=== PATIENT | male | born 1990 | race Two or more races ===

== ENCOUNTER → 2020-05-20 | Emergency (ER) | payer OTHER ==
[~2020-05-20] VITALS: Ht 177.8 cm; Wt 101.2 kg
[~2020-05-20] MED LIST: ALBUTEROL SULF8.5 G1 INH; Albuterol ud Inhalation HHN ONE
[2020-05-20 21:10] VITALS: BP 137/92
--- NOTE | 2020-05-20 21:51 | Emergency Room Report ---
History of Present Illness General Chief Complaint: Chest Pain Source: Patient (Keenan Rodríguez MD) Present Illness HPI Patient is a 30-year-old male presents for increased palpitations and chest discomfort. Onset of symptoms immediately after intercourse. Reports having rapid heartbeat. Had noticed previous episodes of similar symptoms in the past. Had previous ER visit to [facility] for similar symptoms and had essentially negative work-up. He had been advised to follow-up with cardiology however he was unable to make an appointment. Denies any leg pain or swelling. Reports having increased left-sided pain with associated arm discomfort. Denies any prior cardiac history. Reports having palpitations with maximal heart rate which he would take EKGs from his watch (Keenan Rodríguez MD) Allergies: Coded Allergies: No Known Allergies (Unverified , 05/20/20) COVID-19 Screening Contact w/high risk pt: No Experienced COVID-19 symptoms?: No COVID-19 Testing performed PROCUREMENT COORDINATOR: No (Keenan Rodríguez MD) Patient History Past Medical History: see triage record Reviewed Nursing Documentation: PMH: Agreed; PSxH: Agreed (Keenan Rodríguez MD) Nursing Documentation-PMH Hx Hypertension: Yes (Keenan Rodríguez MD) Review of Systems All Other Systems: negative except mentioned in HPI (Keenan Rodríguez MD) Physical Exam Vital Signs Date Time Temp Pulse Resp B/P (MAP) Pulse Ox O2 Delivery O2 Flow Rate FiO2 05/20/20 21:10 97.9 96 18 137/92 (107) 99 Room Air Sp02 EP Interpretation: reviewed, normal General Appearance: normal inspection, well appearing, no apparent distress, alert, GCS 15 Head: atraumatic ENT: normal ENT inspection, hearing grossly normal, normal voice Neck: normal inspection, full range of motion, supple, no bony tend Respiratory: normal inspection, lungs clear, normal breath sounds, no respiratory distress, no retraction, no wheezing Cardiovascular #1: regular rate, rhythm, no edema Gastrointestinal: normal inspection, normal bowel sounds, non tender, soft, no guarding, no hernia Genitourinary: no CVA tenderness Musculoskeletal: normal inspection, back normal, normal range of motion Neurologic: alert, motor strength/tone normal, wire roller III-XII nml as tested, oriented x3, responsive, speech normal, normal inspection Psychiatric: normal inspection, judgement/insight normal, mood/affect normal (Keenan Rodríguez MD) Medical Decision Making Diagnostic Impression: Primary Impression: Chest pain Qualified Codes: R07.9 - Chest pain, unspecified ER Course patient presented for chest pain. Differential diagnosis include was not limited to pneumonia, coronavirus infection, bronchitis among others. Because of complexity of patient's case laboratory tests and imaging studies were ordered. (Keenan Rodríguez MD) ER Course Hospital Course 30-year-old M presents ED complaining of chest pain Patient initially seen and evaluated by Dr. Rodríguez. Please see his note for full history and physical Clinical course labs reviewed- all electrolytes normal, troponins negative, no leukocytosis, hemoglobin/hematocrit stable, ddimer wnl EKG - NSR, no acute ischemic changes interpreted by me COVID swab negative. Patient noted to have slight wheeze. Given breathing treatment. Discussed findings with patient. Has had multiple work-ups recently which were unremarkable. No cardiac risk factors. Safe for discharge with close outpatient follow-up. States he has a PMD I. I feel this is a highly complex case requiring extensive working including EKG/Rhythm strip, Xray/CT/US, Blood/urine lab work, repeat exams while in ED, and administration of strong opiates/narcotics for pain control, admission to hospital or close patient follow up. Diagnosis - chest pain Stable and discharged to home with Rx Albuterol. Instructed to followup with PMD. Return to ED if symptoms recur or worsen Laboratory Tests Test 05/20/20 22:05 White Blood Count 8.0 K/UL (4.8-10.8) Red Blood Count 5.06 M/UL (4.70-6.10) Hemoglobin 15.2 G/DL (14.2-18.0) Hematocrit 45.3 % (42.0-52.0) Mean Corpuscular Volume 89 FL (80-99) Mean Corpuscular Hemoglobin 29.9 PG (27.0-31.0) Mean Corpuscular Hemoglobin Concent 33.5 G/DL (32.0-36.0) Red Cell Distribution Width 12.2 % (11.6-14.8) Platelet Count 362 K/UL (150-450) Mean Platelet Volume 7.5 FL (6.5-10.1) Neutrophils (%) (Auto) 50.7 % (45.0-75.0) Lymphocytes (%) (Auto) 40.5 % (20.0-45.0) Monocytes (%) (Auto) 6.9 % (1.0-10.0) Eosinophils (%) (Auto) 1.2 % (0.0-3.0) Basophils (%) (Auto) 0.7 % (0.0-2.0) D-Dimer 0.19 mg/L FEU (0.00-0.49) Sodium Level 138 MMOL/L (136-145) Potassium Level 3.8 MMOL/L (3.5-5.1) Chloride Level 103 MMOL/L (98-107) Carbon Dioxide Level 30 MMOL/L (21-32) Anion Gap 5 mmol/L (5-15) Blood Urea Nitrogen 13 mg/dL (7-18) Creatinine 1.1 MG/DL (0.55-1.30) Estimat Glomerular Filtration Rate > 60 mL/min (>60) Glucose Level 82 MG/DL (74-106) Calcium Level 9.1 MG/DL (8.5-10.1) Total Bilirubin 0.5 MG/DL (0.2-1.0) Aspartate Amino Transf (AST/SGOT) 27 U/L (15-37) Alanine Aminotransferase (ALT/SGPT) 63 U/L (12-78) Alkaline Phosphatase 52 U/L (46-116) Troponin I 0.000 ng/mL (0.000-0.056) Total Protein 8.1 G/DL (6.4-8.2) Albumin 4.1 G/DL (3.4-5.0) Globulin 4.0 g/dL Albumin/Globulin Ratio 1.0 (1.0-2.7) Lipase 190 U/L (73-393) (Duc Ayon MD) EKG Diagnostic Results Rate: normal Rhythm: NSR ST Segments: no acute changes ASA given to the pt in ED: No (Duc Ayon MD) Rhythm Strip Diag. Results EP Interpretation: yes Rhythm: NSR, no PVC's, no ectopy (Duc Ayon MD) Last Vital Signs Date Time Temp Pulse Resp B/P (MAP) Pulse Ox O2 Delivery O2 Flow Rate FiO2 05/20/20 21:10 97.9 96 18 137/92 (107) 99 Room Air (Keenan Rodríguez MD) Status: improved (Duc Ayon MD) Disposition: HOME, SELF-CARE Condition: Stable Scripts Albuterol Sulfate* (Albuterol Sulfate Hfa*) 8.5 Gm Hfa.aer.ad 2 PUFF INH Q6H, #1 INH Prov: Keenan Rodríguez MD 05/20/20 Referrals: NON PHYSICIAN (PCP) Keenan Rodríguez MD May 20, 2020 21:51 Duc Ayon MD May 21, 2020 03:28
--- NOTE | 2020-05-20 21:59 | NUR ---
ED Nurse Note: Walk-in patient with complaints of recurrent chest tightness. IV started at right AC, per patient request. Patient IV patent with blood return, 20G. Patient reports refusing imaging yesterday at [facility] and would like to move forward with imaging today. Patient reports history of hypertension and hyperlipidemia.
[2020-05-20 22:42] LABS: BASOPHILS % (AUTO) 0.7 % (0.0-2.0); EOSINOPHILS % (AUTO) 1.2 % (0.0-3.0); HEMATOCRIT 45.3 % (42.0-52.0); HEMOGLOBIN 15.2 G/DL (14.2-18.0); LYMPHOCYTES % (AUTO) 40.5 % (20.0-45.0); MEAN CORPUSCULAR VOLUME 89 FL (80-99); MONOCYTES % (AUTO) 6.9 % (1.0-10.0); NEUTROPHILS % (AUTO) 50.7 % (45.0-75.0); PLATELET COUNT 362 K/UL (150-450); RED BLOOD COUNT 5.06 M/UL (4.70-6.10); RED CELL DISTRIBUTION WIDTH 12.2 % (11.6-14.8)
[2020-05-20 22:55] LABS: ANION GAP 5 mmol/L (5-15); BLOOD UREA NITROGEN 13 mg/dL (7-18); CALCIUM 9.1 MG/DL (8.5-10.1); CARBON DIOXIDE 30 MMOL/L (21-32); CHLORIDE 103 MMOL/L (98-107); CREATININE 1.1 MG/DL (0.55-1.30); POTASSIUM 3.8 MMOL/L (3.5-5.1); SODIUM 138 MMOL/L (136-145)
[2020-05-20 22:59] LABS: ALANINE AMINOTRANSFERASE 63 U/L (12-78); ALBUMIN 4.1 G/DL (3.4-5.0); ALKALINE PHOSPHATASE 52 U/L (46-116); ASPARTATE AMINO TRANSFERASE 27 U/L (15-37); BILIRUBIN,TOTAL 0.5 MG/DL (0.2-1.0)
--- NOTE | 2020-05-21 00:08 | NUR ---
ED Nurse Note: rt at bedside
--- NOTE | 2020-05-23 17:07 | Cardiology Report ---
APPROVED REPORT EKG Measurement Heart [id number] <Conclusion> Normal sinus rhythm Normal ECG
== END | disposition home or self-care (01) ==
LOC: EMR 21:43
DX: R07.9 Chest pain, unspecified (principal); I10 Essential (primary) hypertension
CPT/HCPCS: 36415; 80053; 83690; 84484; 85025; 85379; 93005; U0002; Z7502; 94640; 99284

== ENCOUNTER 2020-06-06 09:08 | Emergency (ER) | payer OTHER ==
[~2020-06-06] VITALS: Ht 177.8 cm; Wt 100.2 kg
[~2020-06-06 09:08] MED LIST changes: -Albuterol ud Inhalation HHN ONE
--- NOTE | 2020-06-06 09:28 | Emergency Room Report ---
History of Present Illness General Chief Complaint: Upper Respiratory Illness Source: Patient Present Illness HPI Disclaimer: Please note that this report is being documented using DRAGON technology. This can lead to erroneous entry secondary to incorrect interpretation by the dictating instrument. HPI: 30-year-old male presents for evaluation of sore throat and chest pain. Symptoms began last night. He reports sore throat and difficulty swallowing for the past 12 hours. Denies fever, chills, nasal congestion, cough, difficulty br eathing, abdominal pain, nausea, vomiting. He felt that something was stuck in his throat and induced vomiting to help "to dislodge it." Also reported some aching over the left side of his chest. Does not radiate. No exacerbating or relieving factors. Patient recently hospitalized had negative exercise stress test and multiple ER visits for chest pain at multiple facilities all of which are returned unremarkable. He is scheduled for nuclear stress test next month. He was also prescribed an albuterol inhaler but told not to use it by his new PMD as it causes significant tachycardia. 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 EOMI. uvula midline. Tonsils are 2+ nonobstructing. No exudate. Mild erythema. No submandibular lymphadenopathy. Cardiovascular: RRR. S1 and S2 normal. No murmur appreciated Resp: Normal work of breathing. No cough, wheezing or crackles appreciated Abdomen: Abdomen is soft, nondistended. Nontender Skin: Intact. No abrasions, laceration or rash over the exposed skin MSK: Normal tone and bulk. Moving all extremities. No obvious deformity. Neuro: Awake and alert. Mentating appropriately. Medical Decision Making Diagnostic Impression: Primary Impression: Acute nonspecific chest pain with low risk of coronary artery disease ER Course Is a 30-year-old male presenting for evaluation of sore throat and chest discomfort for the past 12 hours. Differential includes not limited to laryngitis, pharyngitis, URI, pneumonia, bronchitis, esophageal spasm, GERD, ACS, arrhythmia among others. Patient recently had negative exercise stress test and scheduled for nuclear stress test with his keeler polygraph operator next month. EKG is nonischemic. No infiltrate or other acute findings on chest x-ray. Patient is tolerating liquids at bedside. Possible mild pharyngitis though does not meet [facility] criteria for antibiotics at this time is otherwise well- appearing. Labs including troponin are within normal limits. Patient feels reassured by this. He is stable for outpatient follow-up. Instructed to follow-up with PMD and keeler polygraph operator as scheduled. Discussed reasons to return to the emergency department; he understands and agrees with treatment plan. Laboratory Tests Test 06/06/20 09:20 White Blood Count 7.7 K/UL (4.8-10.8) Red Blood Count 5.25 M/UL (4.70-6.10) Hemoglobin 15.9 G/DL (14.2-18.0) Hematocrit 44.0 % (42.0-52.0) Mean Corpuscular Volume 84 FL (80-99) Mean Corpuscular Hemoglobin 30.2 PG (27.0-31.0) Mean Corpuscular Hemoglobin Concent 36.0 G/DL (32.0-36.0) Red Cell Distribution Width 11.4 % (11.6-14.8) L Platelet Count 365 K/UL (150-450) Mean Platelet Volume 6.9 FL (6.5-10.1) Neutrophils (%) (Auto) % (45.0-75.0) Lymphocytes (%) (Auto) % (20.0-45.0) Monocytes (%) (Auto) % (1.0-10.0) Eosinophils (%) (Auto) % (0.0-3.0) Basophils (%) (Auto) % (0.0-2.0) Differential Total Cells Counted 100 Neutrophils % (Manual) 28 % (45-75) L Lymphocytes % (Manual) 64 % (20-45) H Monocytes % (Manual) 7 % (1-10) Eosinophils % (Manual) 1 % (0-3) Basophils % (Manual) 0 % (0-2) Band Neutrophils 0 % (0-8) Platelet Estimate Adequate Platelet Morphology Normal Red Blood Cell Morphology Normal Sodium Level 137 MMOL/L (136-145) Potassium Level 4.3 MMOL/L (3.5-5.1) Chloride Level 102 MMOL/L (98-107) Carbon Dioxide Level 29 MMOL/L (21-32) Anion Gap 6 mmol/L (5-15) Blood Urea Nitrogen 8 mg/dL (7-18) Creatinine 1.0 MG/DL (0.55-1.30) Estimated Glomerular Filtration Rate > 60 mL/min (>60) Glucose Level 91 MG/DL (74-106) Calcium Level 9.2 MG/DL (8.5-10.1) Total Bilirubin 0.4 MG/DL (0.2-1.0) Aspartate Amino Transferase (AST) 38 U/L (15-37) H Alanine Aminotransferase (ALT) 57 U/L (12-78) Alkaline Phosphatase 55 U/L (46-116) Troponin I 0.000 ng/mL (0.000-0.056) Total Protein 8.4 G/DL (6.4-8.2) H Albumin 4.2 G/DL (3.4-5.0) Globulin 4.2 g/dL Albumin/Globulin Ratio 1.0 (1.0-2.7) EKG Diagnostic Results Troponin ordered: Yes When was troponin ordered?: Jun 06, 2020 EKG Time: 09:17 Rate: normal Rhythm: NSR ST Segments: no acute changes Other Impression Sinus rhythm, normal axis, normal intervals, no ST segment changes. Rhythm Strip Diag. Results Rhythm Strip Time: 09:17 EP Interpretation: yes Rate: 70s Rhythm: NSR, no PVC's, no ectopy Chest X-Ray Diagnostic Results Chest X-Ray Diagnostic Results : Chest X-Ray Ordered: Yes # of Views/Limited/Complete: 1 View Indication: Chest Pain Interpretation: no consolidation, no effusion, no pneumothorax, no acute cardiopulmonary disease Impression: No acute disease Electronically Signed by: Electronically signed by Dr. Wenceslao Garcia Last Vital Signs Date Time Temp Pulse Resp B/P (MAP) Pulse Ox O2 Delivery O2 Flow Rate FiO2 10/20/20 09:14 97.9 82 22 144/97 (113) 96 Room Air Disposition: HOME, SELF-CARE Condition: Stable Scripts Acetaminophen* (TYLENOL EXTRA STRENGTH*) 500 Mg Tablet 500 MG ORAL Q8H PRN for Prn Headache/Temp > 101, #30 TAB 0 Refills Prov: Wenceslao Garcia MD 06/06/20 Wenceslao Garcia MD Jun 06, 2020 09:28
[2020-06-06] MEDS ORDERED: Acetaminophen 500mg (ES) tab ORAL ONE (09:30)
[2020-06-06 09:39] VITALS: BP 144/97
[2020-06-06 09:42] LABS: HEMOGLOBIN 15.9 G/DL (14.2-18.0); MEAN CORPUSCULAR VOLUME 84 FL (80-99); PLATELET COUNT 365 K/UL (150-450); RED BLOOD COUNT 5.25 M/UL (4.70-6.10); RED CELL DISTRIBUTION WIDTH 11.4 % (11.6-14.8); WHITE BLOOD COUNT 7.7 K/UL (4.8-10.8)
[2020-06-06 10:03] LABS: ANION GAP 6 mmol/L (5-15); BLOOD UREA NITROGEN 8 mg/dL (7-18); CALCIUM 9.2 MG/DL (8.5-10.1); CARBON DIOXIDE 29 MMOL/L (21-32); CHLORIDE 102 MMOL/L (98-107); POTASSIUM 4.3 MMOL/L (3.5-5.1); SODIUM 137 MMOL/L (136-145)
[2020-06-06 10:08] LABS: ALANINE AMINOTRANSFERASE 57 U/L (12-78); ALBUMIN 4.2 G/DL (3.4-5.0); ALKALINE PHOSPHATASE 55 U/L (46-116); ASPARTATE AMINO TRANSFERASE 38 U/L (15-37); BILIRUBIN,TOTAL 0.4 MG/DL (0.2-1.0)
[2020-06-06] MEDS ORDERED: TYLENOL EXTRA500 MG ORAL (10:08)
[2020-06-06 10:13] VITALS: BP 132/88
--- NOTE | 2020-06-06 14:46 | Diagnostic Imaging Report ---
Indication: Reason For Exam: CP Technique: Single AP view of the chest. Comparison: None. Findings: The cardiomediastinal silhouette is within normal limits. There is no focal consolidation, pneumothorax or pleural effusion. Osseous structures demonstrate no acute abnormality. IMPRESSION: No radiographic evidence of acute cardiopulmonary process.
--- NOTE | 2020-06-07 15:34 | Cardiology Report ---
APPROVED REPORT EKG Measurement Heart [id number] <Conclusion> Normal sinus rhythm with sinus arrhythmia Normal ECG
== END 2020-06-06 10:13 | disposition home or self-care (01) ==
LOC: EMR 09:30
DX: R07.9 Chest pain, unspecified (principal); R07.0 Pain in throat; I10 Essential (primary) hypertension
CPT/HCPCS: 36415; 71045; 80053; 84484; 85007; 85025; 93005; Z7502; 99283

== ENCOUNTER 2020-06-10 02:37 | Inpatient (IN) | payer OTHER ==
[~2020-06-10] VITALS: Ht 177.8 cm; Wt 99.2 kg
[~2020-06-10 02:37] MED LIST changes: +TYLENOL EXTRA500 MG ORAL
--- NOTE | 2020-06-10 02:45 | NUR ---
ED Nurse Note: pt ambulated into ed from home CO CP x 1 hr after intercourse. Pt reports recent constipation x 2 days. pt reports taking amlodipine, lipitor, and ASA at home daily. pt aao x 4, ambulates with steady gait. changed into gown; attached to monitor. patient vitals stable. all safety measures met.
[2020-06-10 02:50] VITALS: BP 143/86
--- NOTE | 2020-06-10 02:50 | NUR ---
ED Nurse Note: iv access established. blood urine covid swab collected; sent down to lab.
--- NOTE | 2020-06-10 03:01 | Emergency Room Report ---
History of Present Illness General Chief Complaint: Chest Pain Source: Patient Present Illness HPI Patient is a 30-year-old male past medical history of obesity, hyperlipidemia and hypertension who presents to the ER complaining of chest pain. Patient states that he was involved in sexual intercourse approximately 1 hour prior to arrival when he had onset of left-sided chest pain, dizziness and shortness of breath. Patient states that he has not been taking his medications for the past 3 days because he had an upset stomach. He denies any current abdominal pain, nausea or vomiting. Patient states that he was admitted to [facility] last month for chest pain and had onset of chest pain during his stress test. He is scheduled for nuclear stress test in the next month. Patient denies any family history of early cardiovascular disease. Patient states that he traveled to [facility] approximately 1-1/2 months ago. Patient states that he quit smoking years ago and quit drinking as well. He denies any drug use. 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 COVID-19 Screening: Negative COVID-19 COVID-19 Testing Source: 05/2020 Patient History Reviewed Nursing Documentation: PMH: Agreed; PSxH: Agreed Nursing Documentation-PMH Past Medical History: No History, Except For Hx Cardiac Problems: Yes Hx Hypertension: Yes Hx Gastrointestinal Problems: Yes - high cholesterol, hiatal hernia Review of Systems All Other Systems: negative except mentioned in HPI Physical Exam Vital Signs Date Time Temp Pulse Resp B/P (MAP) Pulse Ox O2 Delivery O2 Flow Rate FiO2 06/10/20 02:39 98.4 82 22 143/86 (105) 96 Room Air Sp02 EP Interpretation: reviewed, normal General Appearance: no apparent distress, alert, GCS 15, non-toxic Head: normocephalic, atraumatic Eyes: bilateral eye normal inspection, bilateral eye PERRL ENT: hearing grossly normal, normal pharynx, no angioedema, normal voice Neck: full range of motion, supple/symm/no masses Respiratory: chest non-tender, lungs clear, normal breath sounds, speaking full sentences, other - Mildly tachypneic Cardiovascular #1: regular rate, rhythm Cardiovascular #2: 2+ carotid (R), 2+ carotid (L), 2+ radial (R), 2+ radial (L), 2+ femoral (R), 2+ femoral (L) Gastrointestinal: normal bowel sounds, non tender, soft, non-distended, no guarding, no rebound, overweight Rectal: deferred Musculoskeletal: normal range of motion, no calf tenderness, no lower extremity edema Neurologic: resin filterer III-XII nml as tested, oriented x3 Psychiatric: no suicidal/homicidal ideation Skin: no rash Lymphatic: no adenopathy Medical Decision Making Diagnostic Impression: Primary Impression: Acute nonspecific chest pain with low risk of coronary artery disease ER Course Patient resting comfortably in his bed. Patient reevaluated at 4:05 AM. Patient given IV fluids as well as aspirin. Patient states that he feels much improved. He states that he is completely asymptomatic now I reviewed his laboratory results specifically a negative D-dimer as well as a negative troponin. Patient is declining a chest x-ray. He states that he does not want any radiation. Myself and the radiology aide told him that there were radiologic findings that could help us for his diagnosis and he is still declining. Patient's COVID-19 swab is negative. Patient has concerning history with his medical history of obesity, hypertension and hyperlipidemia and positive reported stress test at [facility] and chest pain during sexual activity which I considered to be a positive stress test as well. Patient will be admitted for further treatment and evaluation and likely cardiology consultation. Laboratory Tests Test 06/10/20 02:50 White Blood Count 7.1 K/UL (4.8-10.8) Red Blood Count 5.17 M/UL (4.70-6.10) Hemoglobin 15.3 G/DL (14.2-18.0) Hematocrit 45.3 % (42.0-52.0) Mean Corpuscular Volume 88 FL (80-99) Mean Corpuscular Hemoglobin 29.7 PG (27.0-31.0) Mean Corpuscular Hemoglobin Concent 33.9 G/DL (32.0-36.0) Red Cell Distribution Width 12.0 % (11.6-14.8) Platelet Count 341 K/UL (150-450) Mean Platelet Volume 7.1 FL (6.5-10.1) Neutrophils (%) (Auto) 43.1 % (45.0-75.0) L Lymphocytes (%) (Auto) 50.1 % (20.0-45.0) H Monocytes (%) (Auto) 4.0 % (1.0-10.0) Eosinophils (%) (Auto) 2.0 % (0.0-3.0) Basophils (%) (Auto) 0.9 % (0.0-2.0) Prothrombin Time 10.7 SEC (9.30-11.50) Prothrombin Time INR 1.0 (0.9-1.1) Activated Partial Thromboplast Time 26 SEC (23-33) D-Dimer < 0.19 mg/L FEU Sodium Level 134 MMOL/L (136-145) L Potassium Level 3.9 MMOL/L (3.5-5.1) Chloride Level 98 MMOL/L (98-107) Carbon Dioxide Level 29 MMOL/L (21-32) Anion Gap 7 mmol/L (5-15) Blood Urea Nitrogen 8 mg/dL (7-18) Creatinine 1.1 MG/DL (0.55-1.30) Estimated Glomerular Filtration Rate > 60 mL/min (>60) Glucose Level 138 MG/DL (74-106) H Calcium Level 8.8 MG/DL (8.5-10.1) Total Bilirubin 0.4 MG/DL (0.2-1.0) Aspartate Amino Transferase (AST) 25 U/L (15-37) Alanine Aminotransferase (ALT) 50 U/L (12-78) Alkaline Phosphatase 56 U/L (46-116) Troponin I 0.000 ng/mL (0.000-0.056) Pro-B-Type Natriuretic Peptide 8 pg/mL (0-125) Total Protein 7.3 G/DL (6.4-8.2) Albumin 4.2 G/DL (3.4-5.0) Globulin 3.1 g/dL Albumin/Globulin Ratio 1.4 (1.0-2.7) Urine Opiates Screen Negative (NEGATIVE) Urine Barbiturates Screen Negative (NEGATIVE) Phencyclidine (PCP) Screen Negative (NEGATIVE) Urine Amphetamines Screen Negative (NEGATIVE) Urine Benzodiazepines Screen Negative (NEGATIVE) Urine Cocaine Screen Negative (NEGATIVE) Urine Marijuana (THC) Screen Negative (NEGATIVE) Microbiology Date/Time Source Procedure Growth Status 06/10/20 02:50 Nasopharynx SARS-CoV-2 RdRp Gene Assay - Final Complete EKG Diagnostic Results Troponin ordered: Yes When was troponin ordered?: Jun 10, 2020 EKG Time: 02:50 EP Interpretation: Annette Bains MD Rate: normal - 79 bpm Rhythm: NSR ST Segments: no acute changes ASA given to the pt in ED: No Rhythm Strip Diag. Results Rhythm Strip Time: 03:47 EP Interpretation: yes - Annette Bains MD Rate: 78 bpm Rhythm: NSR, no PVC's, no ectopy Last Vital Signs Date Time Temp Pulse Resp B/P (MAP) Pulse Ox O2 Delivery O2 Flow Rate FiO2 06/10/20 02:39 98.4 82 22 143/86 (105) 96 Room Air Disposition: PLACE IN OBSERVATION - Telemetry Condition: Critical Physician Consult: Discussed with Dr. Kaiser at 4:44 AM she is covering for Dr. Benitez Referrals: [facility],REFERR[facility] (PCP) Additional Instructions: Please note that this report is being documented using Auto I.D. technology. This can lead to erroneous entry secondary to incorrect interpretation by the dictating instrument. Annette Bains M.D. Jun 10, 2020 03:01
[2020-06-10] MEDS ORDERED: AMLODIPINE BES2.5 MG ORAL (03:25)
[2020-06-10] MEDS ORDERED: ASPIRIN81 MG ORAL (03:25)
[2020-06-10] MEDS ORDERED: LIPITOR40 MG ORAL (03:25)
[2020-06-10 03:31] LABS: BASOPHILS % (AUTO) 0.9 % (0.0-2.0); HEMATOCRIT 45.3 % (42.0-52.0); HEMOGLOBIN 15.3 G/DL (14.2-18.0); LYMPHOCYTES % (AUTO) 50.1 % (20.0-45.0); MEAN CORPUSCULAR VOLUME 88 FL (80-99); NEUTROPHILS % (AUTO) 43.1 % (45.0-75.0); PLATELET COUNT 341 K/UL (150-450); RED BLOOD COUNT 5.17 M/UL (4.70-6.10); WHITE BLOOD COUNT 7.1 K/UL (4.8-10.8)
[2020-06-10 03:40] LABS: ANION GAP 7 mmol/L (5-15); BLOOD UREA NITROGEN 8 mg/dL (7-18); CALCIUM 8.8 MG/DL (8.5-10.1); CARBON DIOXIDE 29 MMOL/L (21-32); CHLORIDE 98 MMOL/L (98-107); CREATININE 1.1 MG/DL (0.55-1.30); POTASSIUM 3.9 MMOL/L (3.5-5.1); SODIUM 134 MMOL/L (136-145)
[2020-06-10 03:45] LABS: PARTIAL THROMBOPLASTIN TIME 26 SEC (23-33)
[2020-06-10 03:50] LABS: ALANINE AMINOTRANSFERASE 50 U/L (12-78); ALBUMIN 4.2 G/DL (3.4-5.0); ALBUMIN/GLOBULIN RATIO 1.4 (1.0-2.7); ALKALINE PHOSPHATASE 56 U/L (46-116); ASPARTATE AMINO TRANSFERASE 25 U/L (15-37); BILIRUBIN,TOTAL 0.4 MG/DL (0.2-1.0)
[2020-06-10 04:30] VITALS: BP 132/84
--- NOTE | 2020-06-10 05:05 | NUR ---
TRANSFER TO FLOOR: Patient transferred to tele 220-2 as ordered, per sourav regalado. Report given to gladys dunaway. patient stable for transport. transferred to unit via gurney with 2 rn. belongings and admission packet sent with patient.
--- NOTE | 2020-06-10 05:15 | NUR ---
NURSE NOTES: Received report from ER nurse Lexii. patient being admitted to tele for observation. Patient c/o 5/10 chest pain mainly during exertion, intermittent and non radiating. Patient is ambulatory with steady gait alert and oriented x4. Call light in reach. Patient has cell phone, clothing and keys with him. Belongings list signed. Bed at lowest position locked with side rail up for support. Will contact MD for further orders.
--- NOTE | 2020-06-10 05:45 | NUR ---
NURSE NOTES: Dr. Kaiser covering for Dr. Benitez called for orders for patient but no call back at this time. Will attempt in 30 minutes.
--- NOTE | 2020-06-10 06:37 | NUR ---
NURSE NOTES: Called Dr. Benitez's exchange spoke with Sage for orders. Awaiting call back.
--- NOTE | 2020-06-10 06:50 | NUR ---
NURSE NOTES: Orders recieved from Dr. Onofre. Noted and carried out.
[2020-06-10] MEDS ORDERED: Atorvastatin 20mg tab ORAL ONE (07:00)
--- NOTE | 2020-06-10 07:50 | NUR ---
NURSE NOTES: Report given to Arnulfo BARNETT. Patient is stable alert and oriented x 4 and denies any chest pain at this time.
[2020-06-10 08:00] VITALS: BP 132/78
--- NOTE | 2020-06-10 08:00 | NUR ---
NURSE NOTES: Pt napping in bed, breathing easily on room air, denies SOB and denies pain at this time but c/o mild stomach upset, given some soda cracker and water. Vital signs stable with SR @ 66 on monitor. IV access LAC flushed with 10 ml NS and locked. Bed left in low position, side rails up x 2 and call light left near pt's hand.
[2020-06-10] MEDS: Aspirin Baby 81mg ORAL SCH (09:15)
[2020-06-10 09:17] LABS: CHOLESTEROL 180 MG/DL (< 200); HDL CHOLESTEROL 38 MG/DL (40-60); TRIGLYCERIDES 308 MG/DL (30-150)
--- NOTE | 2020-06-10 10:52 | NUR ---
CASE MANAGEMENT:REVIEW 30 YR OLD MALE WALKED IN TO ER CC: CHEST PAIN SI: ACS 98.4 82 22 143/86 96% ON RA TROPONIN(-) IS: 1L NS BOLUS ASA PO LIPITOR PO CHEST XRAY : TO TELEMETRY UNIT DCP: FROM HOME
[2020-06-10] MEDS ORDERED: Milk of Magnesia 30ml Ud ORAL PRN (11:00)
[2020-06-10] MEDS ORDERED: Mylanta II UD 30ml ORAL PRN (11:00)
[2020-06-10] MEDS ORDERED: Albuterol/Ipratropium 3ml neb HHN PRN (11:00)
[2020-06-10] MEDS ORDERED: Miralax 17gm pkt ORAL PRN (11:00)
--- NOTE | 2020-06-10 11:07 | History and Physical ---
History of Present Illness General Reason for Hospitalization: Chest Pain Present Illness HPI Mr. Schwartz is a 30M with PMH of fatty liver disease, HTN and HLD who presents for chest pain during intercourse last night. Patient reports over last 3 months he experiences exertional left sided chest pain that radiates to his left arm; 8/10 intensity, that alleviates with rest. He specifically notes every time he has intercourse with his , walks up stairs, or exercises he induces his chest pain. He has associated dyspnea and PND. He was previously seen at OSH a few months ago for similar presentation in which patient completed ECG that showed no abnormalities. 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 He notes randomly his heart will race during the day in the 120's. Denies previous cardiopulmonary hx. No family hx of heart disease. He does admit to snoring, waking gasping for air and excessive day time sleepiness. He has not been evaluated for JORGE A. He also has poor diet and eats late at night; he does get chest discomfort as well after certain meals. Denies any drug use or acohol use. No new medications. No recent illnesses, sick contacts, or travels. Rest of 10 point ROS negative. In the ED, patient hemodynamically stable. Trops negative. EKG nsr without acute ST changes. Admitted for chest pain PMH: HTN, HLD, NAFLD Sx: none Fx: no cardiac or pulmonary disease Soc: denies smoking,drinking or drug use Allergies: Coded Allergies: No Known Allergies (Unverified , 05/20/20) COVID-19 Screening Contact w/high risk pt: No Experienced COVID-19 symptoms?: No Medication History Scheduled Albuterol Sulfate* (Albuterol Sulfate Hfa*), 2 PUFF INH Q6H Amlodipine Besylate* (Amlodipine Besylate*), 2.5 MG ORAL DAILY, (Reported) Aspirin* (Aspirin*), 81 MG ORAL DAILY, (Reported) Atorvastatin Calcium* (Lipitor*), 40 MG ORAL DAILY, (Reported) Scheduled PRN Acetaminophen* (Tylenol Extra Strength*), 500 MG ORAL Q8H PRN for Prn Headache/Temp > 101 Patient History Healthcare decision maker Resuscitation status Advanced Directive on File Review of Systems Constitutional: Denies: no symptoms, see HPI, chills, sweats, fever, malaise, weakness, other Eye: Denies: no symptoms, see HPI, eye pain, blurred vision, tearing, double vision, nose pain, nose congestion, acuity changes, discharge, other ENT: Denies: no symptoms, see HPI, ear pain, ear discharge, nose pain, nose congestion, throat pain, throat swelling, mouth pain, hearing loss, nasal discharge, other Respiratory: Denies: no symptoms, see HPI, cough, orthopnea, shortness of breath, stridor, wheezing, ARCE, sputum, other Gastrointestinal: Denies: no symptoms, see HPI, abdominal pain, constipation, diarrhea, nausea, vomiting, melena, hematemesis, other Genitourinary: Denies: no symptoms, see HPI, discharge, dysuria, frequency, hematuria, pain, retention, incontinence, urgency, vag bleed/dc, other Musculoskeletal: Denies: no symptoms, see HPI, back pain, gout, joint pain, joint swelling, muscle pain, muscle stiffness, other Skin: Denies: no symptoms, see HPI, rash, change in color, change in hair/nails, dryness, lesions, other Psychiatric: Denies: no symptoms, see HPI, prior hx, anxiety, depressed feelings, emotional problems, SI, HI, hallucinations, other Neurological: Denies: no symptoms, see HPI, headache, numbness, paresthesia, seizure, tingling, tremors, focal weakness, syncope, dizziness, other Endocrine: Denies: no symptoms, see HPI, excessive sweating, flushing, intolerance to temperature, increased thirst, increased urine, unexplained weight loss, other Hematologic/Lymphatic: Denies: no symptoms, see HPI, anemia, blood clots, easy bleeding, easy bruising, swollen glands, diathesis, other Physical Exam General Appearance: no apparent distress, alert, alert oriented x3 HEENT: normocephalic, PERRL Neck: non-tender, normal inspection Respiratory/Chest: lungs clear, normal breath sounds, no respiratory distress Cardiovascular/Chest: normal rate, regular rhythm, regularly irregular Abdomen: normal bowel sounds, non tender, soft Extremities: normal range of motion, non-tender Skin Exam: normal pigmentation, warm/dry 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8-10.8) Red Blood Count 5.17 M/UL (4.70-6.10) Hemoglobin 15.3 G/DL (14.2-18.0) Hematocrit 45.3 % (42.0-52.0) Mean Corpuscular Volume 88 FL (80-99) Mean Corpuscular Hemoglobin 29.7 PG (27.0-31.0) Mean Corpuscular Hemoglobin Concent 33.9 G/DL (32.0-36.0) Red Cell Distribution Width 12.0 % (11.6-14.8) Platelet Count 341 K/UL (150-450) Mean Platelet Volume 7.1 FL (6.5-10.1) Neutrophils (%) (Auto) 43.1 % (45.0-75.0) L Lymphocytes (%) (Auto) 50.1 % (20.0-45.0) H Monocytes (%) (Auto) 4.0 % (1.0-10.0) Eosinophils (%) (Auto) 2.0 % (0.0-3.0) Basophils (%) (Auto) 0.9 % (0.0-2.0) Prothrombin Time 10.7 SEC (9.30-11.50) Prothromb Time International Ratio 1.0 (0.9-1.1) Activated Partial Thromboplast Time 26 SEC (23-33) D-Dimer < 0.19 mg/L FEU Sodium Level 134 MMOL/L (136-145) L Potassium Level 3.9 MMOL/L (3.5-5.1) Chloride Level 98 MMOL/L (98-107) Carbon Dioxide Level 29 MMOL/L (21-32) Anion Gap 7 mmol/L (5-15) Blood Urea Nitrogen 8 mg/dL (7-18) Creatinine 1.1 MG/DL (0.55-1.30) Estimat Glomerular Filtration Rate > 60 mL/min (>60) Glucose Level 138 MG/DL (74-106) H Calcium Level 8.8 MG/DL (8.5-10.1) Total Bilirubin 0.4 MG/DL (0.2-1.0) Aspartate Amino Transf (AST/SGOT) 25 U/L (15-37) Alanine Aminotransferase (ALT/SGPT) 50 U/L (12-78) Alkaline Phosphatase 56 U/L (46-116) Troponin I 0.000 ng/mL (0.000-0.056) 0.000 ng/mL (0.000-0.056) Pro-B-Type Natriuretic Peptide 8 pg/mL (0-125) Total Protein 7.3 G/DL (6.4-8.2) Albumin 4.2 G/DL (3.4-5.0) Globulin 3.1 g/dL Albumin/Globulin Ratio 1.4 (1.0-2.7) Urine Opiates Screen Negative (NEGATIVE) Urine Barbiturates Screen Negative (NEGATIVE) Phencyclidine (PCP) Screen Negative (NEGATIVE) Urine Amphetamines Screen Negative (NEGATIVE) Urine Benzodiazepines Screen Negative (NEGATIVE) Urine Cocaine Screen Negative (NEGATIVE) Urine Marijuana (THC) Screen Negative (NEGATIVE) Hemoglobin A1c 5.7 % (4.3-6.0) Triglycerides Level 308 MG/DL (30-150) H Cholesterol Level 180 MG/DL (< 200) LDL Cholesterol 89 mg/dL (<100) HDL Cholesterol 38 MG/DL (40-60) L Cholesterol/HDL Ratio 4.7 (3.3-4.4) H Thyroid Stimulating Hormone (TSH) 2.327 uiU/mL (0.358-3.740) Microbiology Date/Time Source Procedure Growth Status 06/10/20 02:50 Nasopharynx SARS-CoV-2 RdRp Gene Assay - Final Complete Height (Feet): 5 Height (Inches): 10.00 Weight (Pounds): 220 Medications Current Medications Medications (Trade) Dose Ordered Sig/Rosemary Route PRN Reason Start Time Stop Time Status Last Admin Dose Admin Acetaminophen (Tylenol) 650 mg Q4H PRN ORAL Mild Pain (Pain Scale 1-3) 06/10/20 11:00 07/10/20 10:59 UNV Acetaminophen (Tylenol) 650 mg Q4H PRN ORAL Temp >100.5 06/10/20 11:00 07/10/20 10:59 UNV Al Hydroxide/Mg Hydroxide (Mylanta II) 30 ml Q6H PRN ORAL dyspepsia 06/10/20 11:00 07/10/20 10:59 UNV Albuterol/ Ipratropium (Albuterol/ Ipratropium) 3 ml Q4HR PRN HHN Shortness of Breath 06/10/20 11:00 06/15/20 10:59 UNV Amlodipine Besylate (Norvasc) 2.5 mg DAILY ORAL 06/10/20 09:00 07/10/20 08:59 06/10/20 09:15 Aspirin (ASA) 81 mg DAILY ORAL 06/10/20 09:00 07/25/20 08:59 06/10/20 09:15 Atorvastatin Calcium (Lipitor) 20 mg DAILY ORAL 06/11/20 09:00 09/08/20 20:59 Dextrose (Dextrose 50%) 25 ml Q30M PRN IV Hypoglycemia 06/10/20 11:00 09/08/20 10:59 UNV Dextrose (Dextrose 50%) 50 ml Q30M PRN IV Hypoglycemia 06/10/20 11:00 09/08/20 10:59 UNV Enoxaparin Sodium (Lovenox) 40 mg Q24H SUBQ 06/10/20 12:00 09/08/20 11:59 UNV Magnesium Hydroxide (Mom) 30 ml HSPRN PRN ORAL Constipation 06/10/20 11:00 07/10/20 10:59 UNV Ondansetron HCl (Zofran) 4 mg Q6H PRN IVP Nausea & Vomiting 06/10/20 11:00 07/10/20 10:59 UNV Pantoprazole (Protonix) 40 mg DAILY ORAL 06/10/20 11:00 07/10/20 10:59 UNV Polyethylene Glycol (Miralax) 17 gm HSPRN PRN ORAL Constipation 06/10/20 11:00 07/10/20 10:59 UNV Assessment/Plan Diagnosis [place] I: Mr. Schwartz is a 30M with PMH of NAFLD, HTN, and HLD who presents for chest pain A: # Typical Chest pain w/ ACS r/o vs JORGE A vs PHTN # Essential HTN # HLD # GERD # NAFLD # ?JORGE A # Obesity Class 1 # hyperglycemia P: - hemodynamically stable - sat well on RA, keep O2 > 92% - trops negative - ekg: nsr without acute st changes or intraventricular conduction abnormalities - f/u ECHO for cardiac function, valvular, and wall motion and Pulmonary pressure eval - defer stress test to cardiology - continue home amlodipine - continue home statin - will start PPI for GERD - UTOX neg - discussed improtance of getting sleep study as an outpatinet as he likely has underlying JORGE A as well - f/u cardiology consult Dr. Vigil, recs appreciated Code: Full GI: PPI DVT: Lovenox Diet: Cardiac Fluids: none Dispo: pending cardiology recs, ECHO In addition to the usual care above I spent additional time reviewing records in the EMR and paper charts including physician documentation, nursing documentation, lab results, imaging and clinical documentation. Total time included was 25 min. Time spent on this encounter was 45 minutes which included 25 minutes of counseling and care coordination. I discussed with the nurse at bedside. Time of note may not reflect time patient was seen. Michael Be D.O Jun 10, 2020 11:06
[2020-06-10] MEDS: Enoxaparin 40mg Inj SUBQ SCH (11:11)
[2020-06-10 12:00] VITALS: BP 133/73
[2020-06-10 16:00] VITALS: BP 128/78
[2020-06-10] MEDS ORDERED: Lexiscan 0.4mg/5ml syringe IV PRN (16:15)
--- NOTE | 2020-06-10 16:15 | Cardiology Progress Note ---
Assessment/Plan Assessment/Plan [id number] Objective Last 24 Hour Vital Signs Date Time Temp Pulse Resp B/P (MAP) Pulse Ox O2 Delivery O2 Flow Rate FiO2 06/10/20 09:15 68 131/84 06/10/20 09:01 Room Air 06/10/20 08:00 68 06/10/20 05:45 Room Air 06/10/20 05:05 98.4 73 19 131/84 98 Room Air 06/10/20 04:30 98.4 76 19 132/84 97 Room Air 06/10/20 02:50 82 22 Room Air 06/10/20 02:50 98.4 82 22 143/86 96 Room Air 06/10/20 02:39 98.4 82 22 143/86 (105) 96 Room Air Intake and Output 06/09/20 06/10/20 19:00 07:00 Intake Total 0 ml Balance 0 ml Intake Oral 0 ml Laboratory Tests Test 06/10/20 02:50 06/10/20 08:15 06/10/20 14:30 White Blood Count 7.1 K/UL (4.8-10.8) Red Blood Count 5.17 M/UL (4.70-6.10) Hemoglobin 15.3 G/DL (14.2-18.0) Hematocrit 45.3 % (42.0-52.0) Mean Corpuscular Volume 88 FL (80-99) Mean Corpuscular Hemoglobin 29.7 PG (27.0-31.0) Mean Corpuscular Hemoglobin Concent 33.9 G/DL (32.0-36.0) Red Cell Distribution Width 12.0 % (11.6-14.8) Platelet Count 341 K/UL (150-450) Mean Platelet Volume 7.1 FL (6.5-10.1) Neutrophils (%) (Auto) 43.1 % (45.0-75.0) L Lymphocytes (%) (Auto) 50.1 % (20.0-45.0) H Monocytes (%) (Auto) 4.0 % (1.0-10.0) Eosinophils (%) (Auto) 2.0 % (0.0-3.0) Basophils (%) (Auto) 0.9 % (0.0-2.0) Prothrombin Time 10.7 SEC (9.30-11.50) Prothromb Time International Ratio 1.0 (0.9-1.1) Activated Partial Thromboplast Time 26 SEC (23-33) D-Dimer < 0.19 mg/L FEU Sodium Level 134 MMOL/L (136-145) L Potassium Level 3.9 MMOL/L (3.5-5.1) Chloride Level 98 MMOL/L (98-107) Carbon Dioxide Level 29 MMOL/L (21-32) Anion Gap 7 mmol/L (5-15) Blood Urea Nitrogen 8 mg/dL (7-18) Creatinine 1.1 MG/DL (0.55-1.30) Estimat Glomerular Filtration Rate > 60 mL/min (>60) Glucose Level 138 MG/DL (74-106) H Calcium Level 8.8 MG/DL (8.5-10.1) Total Bilirubin 0.4 MG/DL (0.2-1.0) Aspartate Amino Transf (AST/SGOT) 25 U/L (15-37) Alanine Aminotransferase (ALT/SGPT) 50 U/L (12-78) Alkaline Phosphatase 56 U/L (46-116) Troponin I 0.000 ng/mL (0.000-0.056) 0.000 ng/mL (0.000-0.056) 0.000 ng/mL (0.000-0.056) Pro-B-Type Natriuretic Peptide 8 pg/mL (0-125) Total Protein 7.3 G/DL (6.4-8.2) Albumin 4.2 G/DL (3.4-5.0) Globulin 3.1 g/dL Albumin/Globulin Ratio 1.4 (1.0-2.7) Urine Opiates Screen Negative (NEGATIVE) Urine Barbiturates Screen Negative (NEGATIVE) Phencyclidine (PCP) Screen Negative (NEGATIVE) Urine Amphetamines Screen Negative (NEGATIVE) Urine Benzodiazepines Screen Negative (NEGATIVE) Urine Cocaine Screen Negative (NEGATIVE) Urine Marijuana (THC) Screen Negative (NEGATIVE) Hemoglobin A1c 5.7 % (4.3-6.0) Triglycerides Level 308 MG/DL (30-150) H Cholesterol Level 180 MG/DL (< 200) LDL Cholesterol 89 mg/dL (<100) HDL Cholesterol 38 MG/DL (40-60) L Cholesterol/HDL Ratio 4.7 (3.3-4.4) H Thyroid Stimulating Hormone (TSH) 2.327 uiU/mL (0.358-3.740) Microbiology Date/Time Source Procedure Growth Status 06/10/20 02:50 Nasopharynx SARS-CoV-2 RdRp Gene Assay - Final Complete Morris Vigil MD Jun 10, 2020 16:14
--- NOTE | 2020-06-10 19:26 | NUR ---
NURSE NOTES: Received patient from ERICKA Arredondo. Patient seen asleep on bed, but easily arousable. AAOx4. Able to verbalize needs. IV site on LAC #18g, flushed. No IVF running at this time. No complaints of pain or discomfort at this time. On room air, saturating well. Able to move in bed independently. Bed in lowest position, brakes engaged. Able to ambulate steadily and independently to bathroom. Call light placed within reach. Will continue to monitor.
[2020-06-10 20:00] VITALS: BP 115/73
[2020-06-10] MEDS ORDERED: Atorvastatin 80mg tab ORAL SCH (21:00)
--- NOTE | 2020-06-10 22:30 | NUR ---
NURSE NOTES: Patient had an episode of SVT (160s). Checked on patient in room and seen in bed with his shoes on. Patient verbalized being in a heated argument with partner and in-law. BP: 130/88; SpO2: 98%. Advised patient to relax and avoid stressors. Called ad informed Dr. Vigil of incident. Ordered for stat ekg if patient has another episode of SVT. Will continue to monitor.
--- NOTE | 2020-06-10 22:30 | Consultation ---
DATE OF CONSULTATION: 06/10/2020 CARDIOLOGY CONSULTATION REFERRING PHYSICIAN: Dr. Be. REASON FOR REFERRAL: Chest pain. HISTORY OF PRESENT ILLNESS: This is a young gentleman who is 30 years old. He has had several times of episodes of palpitations and chest pain. He has called the paramedics on 3 occasions and was brought into the emergency room on one occasion. He does get his heart rate on his Apple watch, showing 153, but he has never correlated it with an official reading or an EKG with the paramedics nor with the emergency room. On one occasion, he was hospitalized at [facility] and was told heart rate was 168. They kept him over there for approximately 4 days and discharged him on aspirin and Lipitor, and scheduled him to undergo a stress testing that is upcoming in about a month or so according to himself. He does note that with any kind of activity, he gets palpitations and he also describes pain sensation. The pain sensation is a gripping sensation that lasts for approximately 5 seconds and resolves and recurs during the time of his exertion, and he also feels palpitations, but he thinks there is a distinction between the palpitations and the pain. Nevertheless, he does not get those symptoms without activity. He did wake up one time with not being able to breathe and palpitations, and his girlfriend told him that it is probably anxiety, just to relax, and his symptoms eventually resolved. PAST MEDICAL HISTORY: He has past medical problems of hypertension and hypertriglyceridemia. No history of heart attack. No cancer. No stroke. No hepatitis or tuberculosis. No asthma or emphysema. He does have history of ulcers and fatty liver. No thyroid problems, anemia, HIV, AIDS, blood clots, or any other medical problems. ALLERGIES: Not allergic to any medications. SOCIAL HISTORY: Rare tobacco and rare marijuana, which he quit. He did use to drink 12-pack at a time once a week, he quit that approximately 1 year ago. He is legally and has 1 child. REVIEW OF SYSTEMS: GASTROINTESTINAL: He has heartburn. GENITOURINARY: Negative. PULMONARY: Negative. CONSTITUTIONAL: Negative. NEUROLOGICAL: Negative. PHYSICAL EXAMINATION: GENERAL: A young male in no respiratory distress. He does appear somewhat anxious. NECK: Supple. No jugular venous distention. CHEST: The chest wall has mild tenderness to palpation, but it is different than what he has experienced before. LUNGS: Clear to auscultation and percussion. CARDIAC: Regular rate and rhythm. No heaves or thrills noted. ABDOMEN: Soft, nontender. Positive bowel sounds. EXTREMITIES: There is no clubbing or cyanosis nor is there any edema. NEUROLOGICAL: He is awake, alert, and responsive. LABORATORY VALUES: Urine was negative. Chemistry, sodium 134, potassium 3.9, chloride 98, bicarb 29, BUN of 8, creatinine 1.1, and glucose of 138. A1c of 5.7. Liver function tests normal. Cardiac enzymes, two were negative and third one is pending. ProBNP is only 8. Total cholesterol is 180, triglycerides 308, his LDL is only 89, and HDL of 38. TSH of 2.37. White count 7.1, hemoglobin 15.3, and platelet count of 341,000, and his electrocardiogram shows normal sinus rhythm, there is no significant ST or T-wave abnormalities, there is no evidence of pre-excitation, and QT intervals are fine. ASSESSMENT AND PLAN: 1. Atypical chest pain. 2. Palpitations. 3. History of ulcers. 4. Hypertriglyceridemia. 5. History of fatty liver. Dr. Be, this patient was seen in cardiac consultation. The patient seems to have these episodes of chest pain with activity only, but he kept telling that they only lasted a few seconds, but had several recurrences during the activity. He has basically stopped being very active at this time because of those symptoms. He had seen a water main pipe layer before and he is scheduled to undergo a perfusion imaging sometime in the future and he is afraid to be active. I think he needs to have further evaluation of stress testing also with monitoring to see if his rhythm becomes an issue. There certainly is a possibility of some supraventricular arrhythmias or heart rates in the 160s or maybe sinus tachycardia at the time of anxiety and maybe the culprit. Distinction between those need to be made based on capture of the rhythm strips. I am not sure if his iWatch actually correlates the reading accurately. I have asked him to make sure that he correlates his iWatch pulse reading with EKGs, especially if he does call the paramedics in the future. If his palpitations are related to a pathologic rhythm or not and further evaluation with an event monitoring may be in order. I want to see if we can order a stress test for him here for [place] in light of the fact that he continues to have these exertional chest pains and he can follow up as an outpatient with his water main pipe layer. Dr. Be, thank you for allowing me to participate in this patient's care. Morris Vigil M.D. DR: MAICOL JOB#: [id number] CC:
[2020-06-11] VITALS: BP 121/74
[2020-06-11 04:00] VITALS: BP 127/77
--- NOTE | 2020-06-11 07:32 | NUR ---
NURSE HAND-OFF REPORT: Important Events on Shift:[Had an episode of 160s precipitated by argument with partner as verbalized by the patient. MD Aware. Ordered for stat EKG if with another episode of SVT.] Patient Status: [FC] Diet: [Cardiac] Pending Orders: [] Pending Results/Labs:[Stress test on Friday] Pending MD notification:[] Latest Vital Signs: Temperature 96.1 , Pulse 74 , B/P 127 /77 , Respiratory Rate 18 , O2 SAT 99 , Room Air, O2 Flow Rate . Vital Sign Comment: [] EKG Rhythm: Sinus Rhythm Rhythm change?: N MD Notified?: Elizabeth Vigil MD Response: Order Received& Read Back Latest Bragg Fall Score: 20 Fall Risk: Low Risk Safety Measures: Call light Within Reach, Bed Alarm , Side Rails Side Rails x2, Bed position Low and Locked. Fall Precautions: Report given to [ERICKA Finney].
[2020-06-11 08:00] VITALS: BP 121/76
[2020-06-11 08:01] LABS: ANION GAP 8 mmol/L (5-15); BLOOD UREA NITROGEN 9 mg/dL (7-18); CALCIUM 9.1 MG/DL (8.5-10.1); CARBON DIOXIDE 28 MMOL/L (21-32); CHLORIDE 102 MMOL/L (98-107); PHOSPHORUS 3.1 MG/DL (2.5-4.9); POTASSIUM 3.4 MMOL/L (3.5-5.1); SODIUM 138 MMOL/L (136-145)
--- NOTE | 2020-06-11 08:17 | NUR ---
NURSE NOTES: Patient sitting up in bed, awake, talking on cell phone, on room air, IV in LAC 18 gauge saline locked, bed in lowest position, call light within reach, side rails up X2, wheels locked, no c/o pain, no SOB, in no apparent distress.
[2020-06-11] MEDS: Aspirin Baby 81mg ORAL SCH (08:57)
[2020-06-11] MEDS ORDERED: Atorvastatin 80mg tab ORAL SCH (09:00)
[2020-06-11] MEDS: Atorvastatin 20mg tab ORAL SCH (09:03)
--- NOTE | 2020-06-11 09:37 | NUR ---
CASE MANAGEMENT:REVIEW 06/11/20 SI: ATYPICAL CHEST PAIN. PALPITATIONS HR TO 160 LAST NIGHT 97.9 80 16 121/76 97% ON RA TROPONIN(-) X4 IS: LIPITOR PO QHS K-DUR PO X1 LOVENOX SQ Q24 PROTONIX PO QD ASA PO QD NORVASC PO QD : TELEMETRY STATUS DCP: FROM HOME PLAN: [facility] STRESS TEST IN AM
--- NOTE | 2020-06-11 09:57 | General Progress Note ---
Subjective Constitutional: Denies: no symptoms, chills, diaphoresis, fever, malaise, weakness, other HEENT: Denies: no symptoms, eye pain, blurred vision, tearing, double vision, ear pain, ear discharge, nose pain, nose congestion, throat pain, throat swelling, mouth pain, mouth swelling, other Cardiovascular: Denies: no symptoms, chest pain, edema, irregular heart rate, lightheadedness, palpitations, syncope, other Respiratory: Denies: no symptoms, cough, orthopnea, shortness of breath, SOB with excertion, SOB at rest, sputum, stridor, wheezing, other Gastrointestinal/Abdominal: Denies: no symptoms, abdomen distended, abdominal pain, black stools, tarry stools, blood in stool, constipated, diarrhea, difficulty swallowing, nausea, poor appetite, poor fluid intake, rectal bleeding, vomiting, other Genitourinary: Denies: no symptoms, burning, discharge, frequency, flank pain, hematuria, incontinence, pain, urgency, other Neurologic/Psychiatric: Denies: no symptoms, anxiety, depressed, emotional problems, headache, numbness, paresthesia, pre-existing deficit, seizure, tingling, tremors, weakness, other Endocrine: Denies: no symptoms, excessive sweating, flushing, intolerance to cold, intolerance to heat, increased hunger, increased thirst, increased urine, unexplained weight gain, unexplained weight loss, other Hematologic/Lymphatic: Denies: no symptoms, anemia, easy bleeding, easy bruising, other Allergies: Coded Allergies: No Known Allergies (Unverified , 05/20/20) Subjective overnight patient HR in the 160's, however BP stable and asymptomatic. Talking with patient he reports arguing with his and father in law when this happen ed. No other events overnight. Denies any CP or sob. Will have stress test tomorrow. Objective Last 24 Hour Vital Signs Date Time Temp Pulse Resp B/P (MAP) Pulse Ox O2 Delivery O2 Flow Rate FiO2 06/11/20 08:57 87 121/76 06/11/20 08:00 87 06/11/20 08:00 97.9 80 16 121/76 (91) 97 06/11/20 04:00 96.1 74 18 127/77 (94) 99 06/11/20 04:00 77 06/11/20 00:00 72 06/11/20 00:00 97.5 86 18 121/74 (90) 99 06/10/20 22:03 160 06/10/20 21:00 Room Air 06/10/20 20:00 82 06/10/20 20:00 97.3 71 18 115/73 (87) 98 06/10/20 16:00 66 06/10/20 16:00 97.8 65 16 128/78 (95) 98 06/10/20 12:00 68 06/10/20 12:00 97.6 68 16 133/73 (93) 96 Intake and Output 06/10/20 06/11/20 19:00 07:00 Intake Total 600 ml 250 ml Balance 600 ml 250 ml Intake Oral 600 ml 250 ml # Voids 2 Laboratory Tests 06/10/20 14:30: Troponin I 0.000 06/10/20 20:50: Troponin I 0.000 06/11/20 06:30: Sodium Level 138, Potassium Level 3.4L, Chloride Level 102, Carbon Dioxide Level 28, Anion Gap 8, Blood Urea Nitrogen 9, Creatinine 1.0, Estimat Glomerular Filtration Rate > 60, Glucose Level 118H, Calcium Level 9.1, Phosphorus Level 3 .1, Magnesium Level 2.2 Height (Feet): 5 Height (Inches): 10.00 Weight (Pounds): 220 General Appearance: no apparent distress, obese, alert oriented x3 EENT: PERRL/EOMI Neck: non-tender, normal inspection Cardiovascular: normal rate, regular rhythm, no JVD Respiratory/Chest: lungs clear, normal breath sounds, no respiratory distress Abdomen: normal bowel sounds, non tender, soft Extremities: normal range of motion, non-tender Edema: no edema noted Arm (L), no edema noted Arm (R), no edema noted Leg (L), no edema noted Leg (R), no edema noted Pedal (L), no edema noted Pedal (R), no edema noted 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 Schwartz is a 30M with PMH of NAFLD, HTN, and HLD who presents for chest pain A: # Atypical Chest pain w/ ACS r/o # Essential HTN # HLD # GERD # NAFLD # ?JORGE A # Obesity Class 1 # hyperglycemia # Anxiety P: - hemodynamically stable - sat well on RA, keep O2 > 92% - trops negative - sinus tach overnight, but due to arguing over phone and stress - ECHO: EF 65%, no wall motion abnormalities or LVH, RVSP 30 - f/u stress test tomorrow - continue home amlodipine - continue home statin - continue PPI for GERD - UTOX neg - discussed improtance of getting sleep study as an outpatinet as he likely has underlying JORGE A as well - f/u cardiology consult Dr. Vigil, recs appreciated Code: Full GI: PPI DVT: Lovenox Diet: Cardiac Fluids: none Dispo: pending stress test, d/c home tomorrow if normal Time spent on this encounter was 35 minutes which included 21 minutes of counseling and care coordination. I discussed with the nurse at bedside. Time of note may not reflect time patient was seen. Michael Be D.O Jun 11, 2020 09:57
--- NOTE | 2020-06-11 11:23 | Cardiology Progress Note ---
Assessment/Plan Assessment/Plan 1. Atypical chest pain. exertional 2. Palpitations episode of profound sinus tachy on telel 06/10 3. History of ulcers. 4. Hypertriglyceridemia. 5. History of fatty liver. got mad on the phone developed tachy to 160 bpm but loosk like sinsu tachy await mpi tomorrow post mpi will give some bb to prevent sinsu tachy observe of tele if recurrent tachy specially if prolonged i have orded 12 lead ekg to capture Subjective Cardiovascular: Reports: palpitations; Denies: chest pain, lightheadedness Respiratory: Denies: shortness of breath Gastrointestinal/Abdominal: Denies: abdominal pain Genitourinary: Denies: burning Objective Last 24 Hour Vital Signs Date Time Temp Pulse Resp B/P (MAP) Pulse Ox O2 Delivery O2 Flow Rate FiO2 06/11/20 08:57 87 121/76 06/11/20 08:00 87 06/11/20 08:00 97.9 80 16 121/76 (91) 97 06/11/20 04:00 96.1 74 18 127/77 (94) 99 06/11/20 04:00 77 06/11/20 00:00 72 06/11/20 00:00 97.5 86 18 121/74 (90) 99 06/10/20 22:03 160 06/10/20 21:00 Room Air 06/10/20 20:00 82 06/10/20 20:00 97.3 71 18 115/73 (87) 98 06/10/20 16:00 66 06/10/20 16:00 97.8 65 16 128/78 (95) 98 06/10/20 12:00 68 06/10/20 12:00 97.6 68 16 133/73 (93) 96 General Appearance: no apparent distress, alert Neck: supple Cardiovascular: normal rate Respiratory/Chest: lungs clear Abdomen: normal bowel sounds, non tender, soft Extremities: no swelling Intake and Output 0 06/10/20 06/11/20 19:00 07:00 Intake Total 600 ml 250 ml Balance 600 ml 250 ml Intake Oral 600 ml 250 ml # Voids 2 Laboratory Tests Test 06/10/20 14:30 06/10/20 20:50 06/11/20 06:30 Troponin I 0.000 ng/mL (0.000-0.056) 0.000 ng/mL (0.000-0.056) Sodium Level 138 MMOL/L (136-145) Potassium Level 3.4 MMOL/L (3.5-5.1) L Chloride Level 102 MMOL/L (98-107) Carbon Dioxide Level 28 MMOL/L (21-32) Anion Gap 8 mmol/L (5-15) Blood Urea Nitrogen 9 mg/dL (7-18) Creatinine 1.0 MG/DL (0.55-1.30) Estimat Glomerular Filtration Rate > 60 mL/min (>60) Glucose Level 118 MG/DL (74-106) H Calcium Level 9.1 MG/DL (8.5-10.1) Phosphorus Level 3.1 MG/DL (2.5-4.9) Magnesium Level 2.2 MG/DL (1.8-2.4) Microbiology Date/Time Source Procedure Growth Status 06/10/20 02:50 Nasopharynx SARS-CoV-2 RdRp Gene Assay - Final Complete Morris Vigil MD Jun 11, 2020 11:23
[2020-06-11 12:00] VITALS: BP 119/67
[2020-06-11] MEDS: Enoxaparin 40mg Inj SUBQ SCH (12:23)
[2020-06-11 16:00] VITALS: BP 120/70
--- NOTE | 2020-06-11 17:56 | NUR ---
NURSE NOTES: Patient instructed no food or drink after midnight, no caffeine, no chocolate, no tea, no products containing guarana, no energy drinks.
--- NOTE | 2020-06-11 18:48 | NUR ---
NURSE HAND-OFF REPORT: Important Events on Shift: Potassium replacement po today. NM Mocardial Perfusion/Lexiscan stress test ordered for tomorrow, NPO after , instructed no caffeine, no chocolate/coffee/tea/products containing Guarana. Signs placed on door, above bed, and on restroom door. Patient appears to get anxious when speaking to girlfriend. iPhone sent home and another iPhone brought in and noted on belongings list. Standing order: STAT EKG if SVT Patient Status: Stable Diet: Cardiac. NPO after midnoc 06/11/2020 Pending Orders: Lexiscan Stress Test 06/12/2020 Pending Results/Labs:am labs, BMP, MG. Pending MD notification:N/A Latest Vital Signs: Temperature 97.7 , Pulse 68 , B/P 120 /70 , Respiratory Rate 18 , O2 SAT 99 , Room Air, O2 Flow Rate . Vital Sign Comment: N/A EKG Rhythm: Sinus Rhythm Rhythm change?: N Notified?: Elizabeth Vigil MD Response: Order Received& Read Back Latest [place] Fall Score: 20 Fall Risk: Low Risk Safety Measures: Call light Within Reach, Bed Alarm , Side Rails Side Rails x2, Bed position Low and Locked. Fall Precautions: Report will be given to Mitchell La RN upon arrival. Addendum: 06/11/20 at 1854 by CINDY PETERSON RN Report given to Mitchell La RN.
--- NOTE | 2020-06-11 19:35 | NUR ---
NURSE NOTES: Received report from ERICKA Finney. Patient AAOx4, able to verbalize needs. On room air, saturating well. Breathing unlabored and even. IV site flushed and patent. No IVF running at this time. Scheduled to have a stress test tomorrow. Reminded of NPO status after midnight, patient verbalized understanding. No complaints of pain or discomfort at this time, still reminded to avoid stressors. Bed in lowest position, brakes engaged and bed alarm on. Bed rails raised x2. Call light placed within reach. Will continue to monitor.
[2020-06-11 20:00] VITALS: BP 113/60
[2020-06-12] VITALS: BP 108/71
[2020-06-12 04:00] VITALS: BP 116/72
[2020-06-12 07:04] LABS: ANION GAP 9 mmol/L (5-15); BLOOD UREA NITROGEN 8 mg/dL (7-18); CALCIUM 9.7 MG/DL (8.5-10.1); CARBON DIOXIDE 28 MMOL/L (21-32); CHLORIDE 104 MMOL/L (98-107); CREATININE 1.1 MG/DL (0.55-1.30); POTASSIUM 4.8 MMOL/L (3.5-5.1); SODIUM 141 MMOL/L (136-145)
--- NOTE | 2020-06-12 07:25 | NUR ---
NURSE HAND-OFF REPORT: Important Events on Shift:[for treadmill or lexiscan stress test today. Patient NPO from midnight. No episode of SVT during the shift. No complaints of chest pain] Patient Status: [FC] Diet: [NPO] Pending Orders: [] Pending Results/Labs:[Treadmill or Lexiscan stress test] Pending MD notification:[] Latest Vital Signs: Temperature 97.7 , Pulse 65 , B/P 116 /72 , Respiratory Rate 18 , O2 SAT 99 , Room Air, O2 Flow Rate . Vital Sign Comment: [] EKG Rhythm: Sinus Rhythm Rhythm change?: N MD Notified?: Elizabeth Vigil MD Response: Order Received& Read Back Latest [place] Fall Score: 20 Fall Risk: Low Risk Safety Measures: Call light Within Reach, Bed Alarm , Side Rails Side Rails x2, Bed position Low and Locked. Fall Precautions: Report given to [ERICKA Mcdonnell].
--- NOTE | 2020-06-12 07:48 | NUR ---
NURSE NOTES: Received Pt report from ERICKA Medrano. Pt is stable and resting in bed. No complaints or s/s of distress at this time. Pt is NPO for cardiac stress test today, Pt verbalized understanding. Pt bed low and locked, call light in reach and bed alarm on. Pt verbalized understanding to call for help. IV on L AC 18g SL, asymptomatic and intact.
[2020-06-12 08:00] VITALS: BP 130/77
--- NOTE | 2020-06-12 08:20 | NUR ---
Attempted to start NM Myocardial Perfusion Scan. The patient states that he specifically said he does not want any more radiation when he consented to the stress test. The purpose for using the radiopharmaceutical for imaging was explained as well as the benefit versus risk. The patient is declining the radiopharmaceutical injection at this time. 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 Informed ERICKA Mcdonnell and cardiology department.
[2020-06-12] MEDS: Aspirin Baby 81mg ORAL SCH (08:43)
[2020-06-12] MEDS: Atorvastatin 20mg tab ORAL SCH (08:44)
[2020-06-12] MEDS ORDERED: LIPITOR20 MG ORAL (10:25)
[2020-06-12] MEDS ORDERED: PANTOPRAZOLE SO40 MG ORAL (10:25)
--- NOTE | 2020-06-12 10:26 | Discharge Instructions ---
Discharge Instructions Discharge Instructions Diet: low fat Activity: resume normal activities Follow Up Orders Follow up with PCP in 1-2 weeks and cardiology in 1-2 weeks For Congestive Heart Failure Reminder Report to your physician any weight gain of 5 pounds or more in one week. Michael Be D.O Jun 12, 2020 10:26
--- NOTE | 2020-06-12 11:45 | Discharge Summary ---
Discharge Summary Hospital Course Date of Admission Jun 10, 2020 at 04:38 Date of Discharge Admitting Diagnosis chest pain HPI Yesi Schwartz is a 30 year old male who was admitted on Jun 10, 2020 at 04:38 for Chest Pain Hospital Course Mr. Schwartz is a 30M with PMH of NAFLD, HTN, and HLD who presents for chest pain. Patient notes 3 months of exertional chest pain during any exercise and intercourse; he was having intercourse during this episode of chest pain prompting his visit to [facility] [place] [facility]. Evaluation of ACS r/o neg for trops and ekg showing NSR without any acute ST changes or conduction abnormalities. He was noted to reach HR of 160's during argument with over phone. Patient appears to have high stress and anxiety. ECHO completed showing normal EF, no wall motion abnormalities elevated pressures. He was evaluated by Dr. Vigil whom conducted a stress test that was negative for an reversible ischemia or ischemic changes. Patient also shows signs of GERD and so PPI was started in which he noticed improvement to his discomfort. He also will benefit from a sleep study given hx of snoring, excessive daytime sleepiness and waking gasping for air. I discussed the case with Dr. Vigil and patient is medically cleared to be discharged today home. 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 grossly normal, oriented x 3 A: # Atypical Chest pain w/ ACS r/o # Essential HTN # HLD # GERD # NAFLD # ?JORGE A # Obesity Class 1 # hyperglycemia # Anxiety P: - stress test negative - start metoprolol ER 25mg daily per cardiology - sinus tach overnight, but due to arguing over phone and stress - ECHO: EF 65%, no wall motion abnormalities or LVH, RVSP 30 - continue home amlodipine - continue home statin - continue PPI for GERD - UTOX neg - discussed importance of getting sleep study as an outpatient as he likely has underlying JORGE A as well - follow up with PCP in 1-2 weeks Dispo: home discharge Time spent on this encounter was 35 minutes which included 21 minutes of counseling and care coordination. I discussed with the nurse at bedside. Time of note may not reflect time patient was seen. Discharge Discharge Vital Signs Last Vital Signs Date Time Temp Pulse Resp B/P (MAP) Pulse Ox O2 Delivery O2 Flow Rate FiO2 06/12/20 09:00 Room Air 06/12/20 08:46 77 130/77 06/12/20 08:00 98.1 18 97 Discharge Disposition Patient was discharged to Discharge Instructions Discharge Instructions Activity: resume normal activities Michael Be D.O Jun 12, 2020 11:45
[2020-06-12 12:00] VITALS: BP 126/83
[2020-06-12] MEDS: Enoxaparin 40mg Inj SUBQ SCH (12:00)
--- NOTE | 2020-06-12 14:07 | NUR ---
NURSE NOTES: Pt refused Lovenox as he is getting discharged today. Risks and benefits explained.
--- NOTE | 2020-06-12 14:43 | Diagnostic Imaging Report ---
Indications: Chest pain Technique: Single day single isotope protocol utilized. Initially, resting images obtained using IV administration 10.4 millicuries 99M technetium Myoview. Subsequently, patient underwent treadmill stress testing. See cardiology report for details. During treadmill test, IV administration 30.1 mCi 99 M technetium Myoview. SPECT and planar images obtained. SPECT images gated to 8 phases of the cardiac cycle were also obtained, and reformatted into cine images for evaluation of ejection fraction. Comparison: none Findings: Per cardiology report, patient experienced sharp chest pain on left chest during exercise. Per cardiology report, resting EKG demonstrates normal sinus rhythm with nonsignificant T-wave abnormality. No ST changes seen during infusion. Patient achieved a peak heart rate of 179 bpm, in excess of the target heart rate of 162 bpm. Imaging demonstrates no fixed nor reversible poststress perfusion defects. Normal left ventricular chamber size. Calculated post stress ejection fraction 66%. No evidence of focal wall motion abnormality Impression: Ischemic clinical response to pharmacologic stress, per cardiology report Nonischemic electrocardiographic response to pharmacologic stress, per cardiology report No imaging findings to suggest ischemia, at level of stress achieved. Calculated post stress ejection fraction 66%
[2020-06-12 16:00] VITALS: BP 134/81
[2020-06-12] MEDS ORDERED: METOPROLOL SUCC25 MG ORAL (17:01)
--- NOTE | 2020-06-12 17:30 | NUR ---
NURSE NOTES: Pt IV removed, catheter tip intact, Pt tolerated well, minimal bleeding. Pt instructed to hold pressure if bleeding reoccurs. Pt telebox removed. Wrist band removed and shredded. Pt belongings gathered. Pt given instructions, medication list and paperwork. Pt instructed to come back to ER or nearest medical facility if symptoms reoccur. Pt verbalized understanding. pt stable on RA. Pt discharged without incident.
--- NOTE | 2020-06-13 13:26 | NUR ---
INSURANCE DC SUMMARY/ INSTRUCTIONS/ REVIEW FAXED TO BILL #[phone] fax# [phone] Addendum: 06/13/20 at 1347 by Jodie Webster [phone]
== END 2020-06-12 17:34 | disposition home or self-care (01) | DRG 198 ==
LOC: EMR 02:55 → OBSVTOIN 04:38 → 2E 04:38 → EDBEDREQ 04:52
DX: I24.9 Acute ischemic heart disease, unspecified (principal); R07.89 Other chest pain; R00.0 Tachycardia, unspecified; I10 Essential (primary) hypertension; E78.5 Hyperlipidemia, unspecified; K21.9 Gastro-esophageal reflux disease without esophagitis; K76.0 Fatty (change of) liver, not elsewhere classified; G47.33 Obstructive sleep apnea (adult) (pediatric); F41.9 Anxiety disorder, unspecified; R73.9 Hyperglycemia, unspecified; E78.1 Pure hyperglyceridemia
CPT/HCPCS: 36415; 78452; 80048; 80053; 80061; 80307; 83036; 83735; 83880; 84100; 84443; 84484; 85025; 85379; 85610; 85730; 93005; 93017; 93306; 96360; 99285; J2785; J7030; J8499; U0002

== ENCOUNTER 2020-07-10 15:15 | Emergency (ER) | payer OTHER ==
[~2020-07-10] VITALS: Ht 177.8 cm; Wt 98.9 kg
[~2020-07-10 15:15] MED LIST changes: +AMLODIPINE BES2.5 MG ORAL; +ASPIRIN81 MG ORAL; +LIPITOR20 MG ORAL; +LIPITOR40 MG ORAL; +METOPROLOL SUCC25 MG ORAL; +PANTOPRAZOLE SO40 MG ORAL
[2020-07-10 15:31] VITALS: BP 125/75
--- NOTE | 2020-07-10 15:32 | NUR ---
ED Nurse Note: Patient walked from home due to sore throat since yesterday, headache and fatigue started this morning. AAO x4, VSS at this time.
--- NOTE | 2020-07-10 15:38 | Emergency Room Report ---
History of Present Illness General Chief Complaint: Sore Throat Present Illness HPI 30-year-old male with history of hypertension and hyperlipidemia currently taking medication here complaining of 2 days of sore throat tonsillar swelling reports this started after he had oral intercourse with girlfriend. Denies coming contact with Covid. Denies chest pain, shortness of breath, cough and congestion. Denies diarrhea and abdominal pain. Has not taken medication for symptom relief. Denies fever and chills. Denies tobacco smoke, marijuana use, no other drug use Allergies: Coded Allergies: No Known Allergies (Unverified , 05/20/20) COVID-19 Screening Contact w/high risk pt: No Experienced COVID-19 symptoms?: Yes COVID-[address] PAINTER: No Patient History Past Medical History: see triage record Past Surgical History: none Pertinent Family History: none Immunizations: UTD Reviewed Nursing Documentation: PMH: Agreed; PSxH: Agreed Nursing Documentation-PMH Hx Cardiac Problems: Yes Hx Hypertension: Yes - high cholesterol Hx Cancer: No Hx Gastrointestinal Problems: Yes - hiatal hernia, fatty liver Hx Neurological Problems: No Review of Systems All Other Systems: negative except mentioned in HPI Physical Exam Vital Signs Date Time Temp Pulse Resp B/P (MAP) Pulse Ox O2 Delivery O2 Flow Rate FiO2 07/10/20 15:20 97.7 79 20 125/75 (92) 96 Room Air Sp02 EP Interpretation: reviewed, normal General Appearance: no apparent distress, alert, GCS 15, non-toxic Head: normocephalic, atraumatic Eyes: bilateral eye normal inspection, bilateral eye PERRL ENT: hearing grossly normal, no angioedema, normal voice, tonsillar swelling, pharyngeal erythema, tonsillar exudate Neck: normal inspection, supple Respiratory: chest non-tender, lungs clear, normal breath sounds, speaking full sentences Cardiovascular #1: regular rate, rhythm, no edema Cardiovascular #2: 2+ carotid (R), 2+ carotid (L), 2+ radial (R), 2+ radial (L), 2+ dorsalis pedis (R), 2+ dorsalis pedis (L) Gastrointestinal: normal bowel sounds, non tender, soft, non-distended, no guarding, no rebound Musculoskeletal: back normal Neurologic: alert, motor strength/tone normal, oriented x3, sensory intact, responsive, speech normal Psychiatric: judgement/insight normal, memory normal, mood/affect normal, no [place] icidal/homicidal ideation Skin: no rash Lymphatic: adenopathy - Anterior cervical Medical Decision Making PA Attestation All my diagnosis and treatment plans were reviewed ad discussed with my supervising physician Dr. Rodríguez Diagnostic Impression: Primary Impression: Tonsillitis with exudate ER Course 30-year-old male with history of hypertension and hyperlipidemia currently taking medication here complaining of 2 days of sore throat tonsillar swelling reports this started after he had oral intercourse with girlfriend. Denies coming contact with Covid. Denies chest pain, shortness of breath, cough and congestion. Denies diarrhea and abdominal pain. Has not taken medication for symptom relief. Denies fever and chills. Denies tobacco smoke, marijuana use, no other drug use Ddx considered but are not limited to: strep pharyngitis, URI, tonsillitis, peritonsillar abscess, influneza, coronavirus Vital signs: are WNL, pt. is afebrile H&PE are most consistent with: Tonsillitis with exudate ORDERS: Azithromycin, prednisone, lidocaine viscous ED INTERVENTIONS: None required at this time. DISCHARGE: At this time pt. is stable for d/c to home. Will provide printed patient care instructions, and any necessary prescriptions. Care plan and follow up instructions have been discussed with the patient prior to discharge. Advised patient to get Covid tested, take medication as directed, if worsening symptoms return to the emergency room Last Vital Signs Date Time Temp Pulse Resp B/P (MAP) Pulse Ox O2 Delivery O2 Flow Rate FiO2 07/10/20 15:31 97.7 20 125/75 96 Room Air 07/10/20 15:20 79 Disposition: HOME, SELF-CARE Condition: Stable Scripts Lidocaine HCl (Lidocaine HCl Viscous) 100 Ml Solution 15 ML MM TID, #120 ML Prov: Houston Whitley 07/10/20 Prednisone* (PREDNISONE*) 20 Mg Tablet 40 MG ORAL DAILY for 5 Days, #10 TAB Prov: Houston Whitley 07/10/20 Azithromycin* (ZITHROMAX*) 250 Mg Tablet 250 MG ORAL DAILY, #6 TAB 0 Refills Take two tables once daily for 1 day, then one tablet once daily for 4 days. Prov: Houston Whitley 07/10/20 Patient Instructions: Strep Throat, Tonsillitis Additional Instructions: Take medication as directed, follow with your primary care provider, if worsening symptoms return to the emergency room Houston Whitley Jul 10, 2020 15:37
[2020-07-10] MEDS ORDERED: LIDOCAINE20 MG/1 M1 MM (15:45)
[2020-07-10] MEDS ORDERED: ZITHROMAX250 MG ORAL (15:45)
[2020-07-10] MEDS ORDERED: PREDNISONE20 MG ORAL (15:45)
[2020-07-10 15:58] VITALS: BP 125/75
--- NOTE | 2020-07-10 15:59 | NUR ---
ED Nurse Note: Pt cleared by health care Provider for discharge. DC instructions/prescription was given and explained to pt and verbalized understanding of teachings. All medical deviecs such as ID band removed. Pt is AAO x4, ambulatory and left with all personal belongings.
== END 2020-07-10 15:58 | disposition home or self-care (01) ==
LOC: EMR 15:43
DX: J03.90 Acute tonsillitis, unspecified (principal); E78.5 Hyperlipidemia, unspecified; I10 Essential (primary) hypertension
CPT/HCPCS: 99282

== ENCOUNTER 2020-10-17 18:04 | Emergency (ER) | payer OTHER ==
[~2020-10-17] VITALS: Ht 180.3 cm; Wt 104.3 kg
[~2020-10-17 18:04] MED LIST changes: +LIDOCAINE20 MG/1 M1 MM; +PREDNISONE20 MG ORAL; +ZITHROMAX250 MG ORAL
[2020-10-17 19:08] VITALS: BP 144/73
[2020-10-17 19:10] LABS: APPEARANCE,URINE CLEAR; BILIRUBIN, URINE NEGATIVE (NEGATIVE); COLOR,URINE PALE YELLOW; GLUCOSE, URINE (UA) NEGATIVE (NEGATIVE); KETONES,URINE NEGATIVE (NEGATIVE); LEUKOCYTE ESTERASE ,URINE NEGATIVE (NEGATIVE); NITRITE,URINE NEGATIVE (NEGATIVE); PH,URINE 7 (4.5-8.0); PROTEIN,URINE NEGATIVE (NEGATIVE); UROBILINOGEN,URINE NORMAL MG/DL (0.0-1.0)
[2020-10-17 19:11] LABS: BASOPHILS % (AUTO) 1.1 % (0.0-2.0); EOSINOPHILS % (AUTO) 2.2 % (0.0-3.0); HEMATOCRIT 45.8 % (42.0-52.0); HEMOGLOBIN 15.4 G/DL (14.2-18.0); LYMPHOCYTES % (AUTO) 52.6 % (20.0-45.0); MEAN CORPUSCULAR VOLUME 87 FL (80-99); MONOCYTES % (AUTO) 7.2 % (1.0-10.0); NEUTROPHILS % (AUTO) 36.9 % (45.0-75.0); PLATELET COUNT 334 K/UL (150-450); RED BLOOD COUNT 5.26 M/UL (4.70-6.10); RED CELL DISTRIBUTION WIDTH 13.6 % (11.6-14.8); WHITE BLOOD COUNT 6.7 K/UL (4.8-10.8)
[2020-10-17 19:20] LABS: ANION GAP 9 mmol/L (5-15); BLOOD UREA NITROGEN 13 mg/dL (7-18); CALCIUM 9.6 MG/DL (8.5-10.1); CARBON DIOXIDE 27 MMOL/L (21-32); CHLORIDE 100 MMOL/L (98-107); POTASSIUM 4.1 MMOL/L (3.5-5.1); SODIUM 136 MMOL/L (136-145)
[2020-10-17 19:26] LABS: ALANINE AMINOTRANSFERASE 53 U/L (12-78); ALBUMIN 4.2 G/DL (3.4-5.0); ALBUMIN/GLOBULIN RATIO 1.1 (1.0-2.7); ALKALINE PHOSPHATASE 58 U/L (46-116); ASPARTATE AMINO TRANSFERASE 6 U/L (15-37); BILIRUBIN,TOTAL 0.2 MG/DL (0.2-1.0)
--- NOTE | 2020-10-17 19:41 | Emergency Room Report ---
History of Present Illness General Chief Complaint: General Complaint Present Illness HPI 30-year-old male with history of hyperlipidemia who was recently prescribed Lipitor and amlodipine at [place] due to high triglyceride after being here for chest pain and admitted, here reports that he has been experiencing flatulence and abdominal cramping on the size for several days. Denies nausea vomiting, diarrhea, constipation, blood in stool. Denies fever and chills. Reports that his primary doctor told him to stop taking Lipitor and amlodipine a month ago. Patient has been on a diet since. Reports that he has been eating more fruits and vegetables, more acidic food. Reports that pain and acid reflux worsened when laying down. Denies any painful urination however reports that due to drinking a lot of water he has been urinating a lot more the past few days. Denies penile discharge. Denies scrotal pain. Denies low back pain, alcohol intake, drug use, tobacco smoke. Denies history of abdominal surgery, abdomen is nondistended, no rigidity or guarding noted. denies chest pain and shortness of breath. Allergies: Coded Allergies: No Known Allergies (Unverified , 05/20/20) COVID-19 Screening Contact w/high risk pt: No Experienced COVID-19 symptoms?: No COVID-19 Testing performed ASSESSMENT COORDINATOR: No COVID-19 Screening: Negative COVID-19 COVID-19 Testing Source: [facility] Patient History Past Medical History: see triage record Past Surgical History: none Pertinent Family History: none Immunizations: UTD Reviewed Nursing Documentation: PMH: Agreed; PSxH: Agreed Nursing Documentation-PMH Hx Cardiac Problems: Yes Hx Hypertension: Yes - high cholesterol Hx Cancer: No Hx Gastrointestinal Problems: Yes - hiatal hernia, fatty liver Hx Neurological Problems: No Review of Systems All Other Systems: negative except mentioned in HPI Physical Exam Vital Signs Date Time Temp Pulse Resp B/P (MAP) Pulse Ox O2 Delivery O2 Flow Rate FiO2 10/17/20 18:26 97.9 84 20 131/74 (93) 98 Room Air Sp02 EP Interpretation: reviewed, normal General Appearance: no apparent distress, alert, GCS 15, non-toxic Head: normocephalic, atraumatic Eyes: bilateral eye normal inspection, bilateral eye PERRL ENT: hearing grossly normal, normal pharynx, no angioedema, normal voice Neck: full range of motion, supple/symm/no masses Respiratory: chest non-tender, lungs clear, normal breath sounds, speaking full sentences Cardiovascular #1: regular rate, rhythm, no edema, no JVD, no murmur Gastrointestinal: non tender, soft, no mass, no organomegaly, no peritonitis, no bruit, non-distended, no guarding, no hernia, no pulsatile mass, no rebound Genitourinary: no CVA tenderness Musculoskeletal: back normal Neurologic: alert, motor strength/tone normal, oriented x3, sensory intact, responsive, speech normal Psychiatric: judgement/insight normal, memory normal, mood/affect normal, no suicidal/homicidal ideation Skin: no rash Lymphatic: no adenopathy Medical Decision Making PA Attestation All diagnoses and treatment plans were reviewed and discussed with my supervising physician Dr. Garcia Diagnostic Impression: Primary Impression: Gastritis ER Course 30-year-old male with history of hyperlipidemia who was recently prescribed Lipitor and amlodipine at [place] due to high triglyceride after being here for chest pain and admitted, here reports that he has been experiencing flatulence and abdominal cramping on the size for several days. Denies nausea vomiting, diarrhea, constipation, blood in stool. Denies fever and chills. Reports that his primary doctor told him to stop taking Lipitor and amlodipine a month ago. Patient has been on a diet since. Reports that he has been eating more fruits and vegetables, more acidic food. Reports that pain and acid reflux worsened when laying down. Denies any painful urination however reports that due to drinking a lot of water he has been urinating a lot more the past few days. Denies penile discharge. Denies scrotal pain. Denies low back pain, alcohol intake, drug use, tobacco smoke. Denies history of abdominal surgery, abdomen is nondistended, no rigidity or guarding noted. denies chest pain and shortness of breath. Ddx considered but are not limited to: Gastritis, gastric ulcer, cholecystitis, abdominal pain, pancreatitis Vital signs: are WNL, pt. is afebrile H&PE are most consistent with: Gastritis ORDERS: CBC, CMP, lipase, UA, tox screen, Pepcid, dicyclomine ED INTERVENTIONS: NS bolus, Pepcid patient reported that she felt much better after taking Pepcid. DISCHARGE: At this time pt. is stable for d/c to home. Will provide printed patient care instructions, and any necessary prescriptions. Care plan and follow up instructions have been discussed with the patient prior to discharge. Take medication as directed, avoid eating acidic spicy food, follow primary doctor for H. pylori testing and referral to logistics loss prevention manager, if worsening symptoms return to emergency room. At this time no CT scan or abdominal ultrasound needed patient abdomen is nonrigid and no guarding noted and labs are within normal limits however advised patient to return to the emergency room for any worsening symptoms. Last Vital Signs Date Time Temp Pulse Resp B/P (MAP) Pulse Ox O2 Delivery O2 Flow Rate FiO2 10/17/20 19:17 81 18 Room Air 10/17/20 19:08 144/73 99 10/17/20 18:26 97.9 Disposition: HOME, SELF-CARE Condition: Stable Scripts Dicyclomine Hcl* (DICYCLOMINE HCL*) 10 Mg Capsule 10 MG ORAL TID, #10 CAP Prov: Houston Whitley 10/17/20 Famotidine* (Pepcid 20mg tablet*) 20 Mg Tablet 20 MG ORAL DAILY for Gerd, #30 TAB 0 Refills Prov: Houston Whitley 10/17/20 Referrals: [facility],REFERRING (PCP) Patient Instructions: Gastritis, Adult, [facility] Additional Instructions: Take medication as directed, avoid any spicy, acidic food, increase oral hydration, follow-up with your primary care provider for H. pylori testing, if symptoms continue to worsen you may need to be referred to logistics loss prevention manager upon request of your primary care provider. If worsening pain, new symptoms return to the emergency room. Houston Whitley Oct 17, 2020 19:41
[2020-10-17] MEDS ORDERED: DICYCLOMINE HCL10 MG ORAL (19:42)
[2020-10-17] MEDS ORDERED: FAMOTIDINE20 MG ORAL (19:42)
[2020-10-17 20:00] VITALS: BP 127/78
--- NOTE | 2020-10-17 20:02 | NUR ---
ER DISCHARGE NOTE: Patient is cleared to be discharged per ERMD, pt is aox4, on room air, with stable vital signs. pt was given dc and prescription instructions, pt was able to verbalize understanding, pt id band and iv site removed without complications. pt is able to ambulate with steady gait. pt took all belongings.
== END 2020-10-17 20:02 | disposition home or self-care (01) ==
LOC: EMR 18:24
DX: K29.70 Gastritis, unspecified, without bleeding (principal); E78.5 Hyperlipidemia, unspecified; E78.00 Pure hypercholesterolemia, unspecified
CPT/HCPCS: 36415; 80053; 80307; 81003; 83690; 85025; 96361; 96374; J7030; S0028; Z7502; 99284